=== PATIENT | female | born 1985 | race Hispanic/Latino ===

== ENCOUNTER → 2018-06-25 14:26 | Outpatient (BNV) | payer MEDICAID, SELFPAY ==
--- NOTE | 2018-06-25 14:26 | LAC.VISIT ---
Assessment LAC OP History History Hx of Breast Surgery: No Hx of Breast Feeding Problems: No Alternative Milk Expression Alternative Milk Expression Alternative Method Used: No LAC Assessment Breast Feeding Assessment Breast Feeding Ability: Well Breast Feeding Comment: Baby A : pre weight 5lbs 11 oz post weight 5lbs 12.7oz baby B : Pre weight 5lbs 3oz post weight 5lbs 5oz Both babies transferred about 2oz LAC Intervention Discharge Other Referral Made: No LAC Latch Score LATCH Score Latch: Grasps Breast, Rythmic Suck Audible Swallow: Spontaneous, Intermittent, Frequent Nipple Type: Everted After Stimulation Comfort: Soft, Nontender Hold: No Assistance Needed Total Score: 10 OP DC Assessment Discharge Other Referral Made: No Visit Complete?: Yes